=== PATIENT | male | born 1970 | race African-American/Black ===

== ENCOUNTER 2018-05-06 13:42 | Emergency (ER) | payer MEDICAID ==
[~2018-05-06] VITALS: Ht 182.9 cm; Wt 90.0 kg
[2018-05-06 15:56] LABS: BASOPHILS % 0.6 % (0.0-2.0); EOSINOPHILS % 0.6 % (0.0-5.0); HEMOGLOBIN. 13.9 g/dL (14.0-18.0); LYMPHOCYTES % 12.3 % (20.0-50.0); MEAN CORPUSCULAR HEMOGLOBIN 29.5 pg (28.0-32.0); MEAN CORPUSCULAR VOLUME 87.2 fL (80.0-94.0); MEAN PLATELET VOLUME 9.8 fl (7.4-10.4); MONOCYTES % 12.2 % (2.0-8.0); NEUTROPHILS % 74.3 % (40.0-76.0); PLATELET 163 x1000/uL (130-400); RED CELL DISTRIBUTION WIDTH 12.5 % (11.6-14.6)
[2018-05-06 16:01] LABS: CLARITY URINE CLEAR (CLEAR); COLOR URINE YELLOW (YELLOW); KETONES URINE NEGATIVE (NEGATIVE); LEUKOCYTE ESTERASE URINE NEGATIVE (NEGATIVE); NITRITE URINE NEGATIVE (NEGATIVE); OCCULT BLOOD URINE NEGATIVE (NEGATIVE); PH URINE 5.5 (4.5-8.0); PROTEIN URINE 1+ (NEGATIVE); SPECIFIC GRAVITY URINE 1.013 (1.005-1.030); UROBILINOGEN URINE 0.2 E.U./dL (0.2-1.0)
[2018-05-06 16:02] LABS: CHLORIDE 111 mEq/L (98-107)
[2018-05-06] MEDS ORDERED: PHENYTOIN SODIUM EXTENDED 100MG CAPSULE PO ONE (16:45)
[2018-05-06 18:10] VITALS: BP 124/77
== END 2018-05-06 18:28 | disposition home or self-care (01) ==
LOC: ER 13:42
DX: R56.9 Unspecified convulsions (principal)
CPT/HCPCS: 36415; 93005; 99284

== ENCOUNTER 2018-05-11 08:19 | Emergency (ER) | payer MEDICAID ==
[~2018-05-11] VITALS: Ht 180.3 cm; Wt 84.0 kg
[2018-05-11] MEDS ORDERED: SODIUM CHLORIDE 0.9% 1,000 ML IV ONE (08:45)
[2018-05-11 09:06] LABS: HEMATOCRIT. 39.7 % (42.0-52.0); HEMOGLOBIN. 13.4 g/dL (14.0-18.0); MEAN CORPUSCULAR HEMOGLOBIN 29.6 pg (28.0-32.0); MEAN PLATELET VOLUME 8.8 fl (7.4-10.4); PLATELET 158 x1000/uL (130-400); RED BLOOD CELL COUNT 4.52 mill/uL (4.7-6.1); RED CELL DISTRIBUTION WIDTH 12.6 % (11.6-14.6)
[2018-05-11 09:12] LABS: CHLORIDE 109 mEq/L (98-107)
[2018-05-11 09:15] LABS: ETHANOL BLOOD < 10 mg/dL
[2018-05-11 09:34] LABS: PLATELET ESTIMATE NORMAL
[2018-05-11] MEDS ORDERED: PHENYTOIN SODIUM 1,000 MG in SODIUM CHLORIDE 0.9% 100 ML IV ONE (09:45)
[2018-05-11 11:40] LABS: *AMPHETAMINES SCREEN URINE NEGATIVE (NEGATIVE); *BARBITURATES SCREEN URINE NEGATIVE (NEGATIVE); *BENZODIAZEPINES SCREEN URINE NEGATIVE (NEGATIVE); *COCAINE SCREEN URINE PRESUMTIVE POSITIVE (NEGATIVE)
[2018-05-11 11:41] LABS: CANNABINOID URINE SCREEN PRESUMTIVE POSITIVE (NEGATIVE); METHADONE URINE SCREEN NEGATIVE (NEGATIVE); OPIATES URINE SCREEN NEGATIVE (NEGATIVE); PHENCYCLIDINE URINE SCREEN NEGATIVE (NEGATIVE)
[2018-05-11 13:05] VITALS: BP 129/89
== END 2018-05-11 13:15 | disposition home or self-care (01) ==
LOC: ER 08:19
DX: R56.9 Unspecified convulsions (principal); Z91.14 Patient's other noncompliance with medication regimen
CPT/HCPCS: 36415; 70450; 80048; 80185; 80305; 80320; 82962; 85025; 96365; 99284; J1165; J7030; J7050; G0480

== ENCOUNTER 2018-08-17 13:53 | Emergency (ER) | payer MEDICAID ==
[~2018-08-17] VITALS: Ht 182.9 cm; Wt 104.0 kg
[2018-08-17 14:20] VITALS: BP 146/68
== END 2018-08-17 17:01 | disposition home or self-care (01) ==
LOC: ER 13:53
DX: S31.119D Laceration without foreign body of abdominal wall, unspecified quadrant without penetration into peritoneal cavity, subsequent encounter (principal); S21.212D Laceration without foreign body of left back wall of thorax without penetration into thoracic cavity, subsequent encounter; S30.811A Abrasion of abdominal wall, initial encounter; S20.412A Abrasion of left back wall of thorax, initial encounter; X58.XXXD Exposure to other specified factors, subsequent encounter
CPT/HCPCS: 99282; Z7610

== ENCOUNTER 2018-10-15 16:05 | Emergency (ER) | payer MEDICAID ==
[~2018-10-15] VITALS: Ht 182.9 cm; Wt 100.0 kg
[2018-10-15] MEDS ORDERED: METHOCARBAMOL 500MG TABLET PO ONE (18:30)
[2018-10-15] MEDS ORDERED: KETOROLAC 60MG/2ML VIAL IM ONE (18:30)
[2018-10-15 20:01] VITALS: BP 110/80
== END 2018-10-15 20:03 | disposition home or self-care (01) ==
LOC: ER 16:05
DX: M54.42 Lumbago with sciatica, left side (principal)
CPT/HCPCS: 96372; 99283; J1885

== ENCOUNTER 2019-07-05 09:00 | Emergency (ER) | payer MEDICAID ==
[~2019-07-05] VITALS: Ht 175.3 cm; Wt 84.0 kg
[2019-07-05 09:01] VITALS: BP 140/92
[2019-07-05] MEDS ORDERED: SODIUM CHLORIDE 0.9% 1,000 ML IV ONE (09:13)
[2019-07-05] MEDS ORDERED: LEVETIRACETAM 1000MG/100ML 100 ML IV ONE (09:15)
== END 2019-07-05 09:48 | disposition left against medical advice (07) ==
LOC: ER 09:00
DX: R56.9 Unspecified convulsions (principal); F12.10 Cannabis abuse, uncomplicated
CPT/HCPCS: 99283; J7030

== ENCOUNTER 2019-07-06 05:45 | Emergency (ER) | payer MEDICAID ==
[~2019-07-06] VITALS: Ht 175.3 cm; Wt 104.0 kg
[2019-07-06] MEDS ORDERED: PHENYTOIN SODIUM 1,000 MG in SODIUM CHLORIDE 0.9% 100 ML IV ONE (07:15)
[2019-07-06 10:02] VITALS: BP 127/79
== END 2019-07-06 10:22 | disposition home or self-care (01) ==
LOC: ER 05:45
DX: G40.909 Epilepsy, unspecified, not intractable, without status epilepticus (principal); Z91.14 Patient's other noncompliance with medication regimen; F12.90 Cannabis use, unspecified, uncomplicated
CPT/HCPCS: 82962; 96365; 99284; J1165; J7050

== ENCOUNTER 2019-07-06 22:39 | Emergency (ER) | payer MEDICAID ==
[~2019-07-06] VITALS: Ht 182.9 cm; Wt 93.8 kg
[2019-07-07] MEDS ORDERED: BACITRACIN ZINC OINT UDPKT TOP ONE (00:15)
[2019-07-07] MEDS ORDERED: LIDOCAINE HCL/PF 1% 10 MG/ML 5ML VIAL IJ ONE (00:15)
[2019-07-07] MEDS ORDERED: IBUPROFEN 600MG TABLET PO ONE (00:15)
[2019-07-07 02:21] VITALS: BP 116/76
== END 2019-07-07 02:23 | disposition home or self-care (01) ==
LOC: ER 22:39
DX: S61.512A Laceration without foreign body of left wrist, initial encounter (principal); W22.8XXA Striking against or struck by other objects, initial encounter; Y93.89 Activity, other specified; Y92.89 Other specified places as the place of occurrence of the external cause; Y99.8 Other external cause status; F12.10 Cannabis abuse, uncomplicated
CPT/HCPCS: 12002; 73110; 99283; J3490

== ENCOUNTER 2019-07-09 09:14 | Emergency (ER) | payer MEDICAID ==
[~2019-07-09] VITALS: Ht 182.9 cm; Wt 93.0 kg
[2019-07-09] MEDS ORDERED: LIDOCAINE 1%/EPI 1:100,000 10 ML VIAL IJ ONE (09:45)
[2019-07-09] MEDS ORDERED: BACITRACIN ZINC OINT UDPKT TOP ONE (09:45)
[2019-07-09] MEDS ORDERED: LIDOCAINE HCL/EPINEPHRINE 1%-EPI 1:100,000 20 ML VIAL INFIL NR (09:45)
[2019-07-09 10:12] VITALS: BP 138/81
== END 2019-07-09 10:13 | disposition home or self-care (01) ==
LOC: ER 09:14
DX: T81.33XA Disruption of traumatic injury wound repair, initial encounter (principal); S61.512D Laceration without foreign body of left wrist, subsequent encounter; F12.10 Cannabis abuse, uncomplicated; Z48.89 Encounter for other specified surgical aftercare; X58.XXXD Exposure to other specified factors, subsequent encounter
CPT/HCPCS: 12001; 99282; J3490

== ENCOUNTER 2019-07-12 10:43 | Emergency (ER) | payer MEDICAID ==
[~2019-07-12] VITALS: Ht 182.9 cm; Wt 95.0 kg
[2019-07-12 11:10] VITALS: BP 132/75
[2019-07-12] MEDS ORDERED: BACITRACIN ZINC OINT UDPKT TOP ONE (11:45)
== END 2019-07-12 12:29 | disposition home or self-care (01) ==
LOC: ER 10:43
DX: S60.812D Abrasion of left wrist, subsequent encounter (principal); F12.10 Cannabis abuse, uncomplicated; Z48.00 Encounter for change or removal of nonsurgical wound dressing; X58.XXXD Exposure to other specified factors, subsequent encounter
CPT/HCPCS: 99282

== ENCOUNTER 2019-10-09 19:24 | Emergency (ER) | payer MEDICAID ==
[~2019-10-09] VITALS: Ht 182.9 cm; Wt 95.0 kg
[2019-10-09 19:30] VITALS: BP 121/81
== END 2019-10-09 20:53 | disposition home or self-care (01) ==
LOC: ER 19:24
DX: Z48.00 Encounter for change or removal of nonsurgical wound dressing (principal)
CPT/HCPCS: 99281

== ENCOUNTER 2019-10-15 13:36 | Emergency (ER) | payer MEDICAID ==
[~2019-10-15] VITALS: Ht 182.9 cm; Wt 99.0 kg
[2019-10-15 16:15] VITALS: BP 120/82
== END 2019-10-15 16:40 | disposition home or self-care (01) ==
LOC: ER 13:36
DX: S01.01XD Laceration without foreign body of scalp, subsequent encounter (principal); F12.10 Cannabis abuse, uncomplicated; Z48.02 Encounter for removal of sutures; Z86.69 Personal history of other diseases of the nervous system and sense organs; X58.XXXD Exposure to other specified factors, subsequent encounter
CPT/HCPCS: 99281